=== PATIENT | male | born 1980 | race Caucasian/White ===

== ENCOUNTER 2017-11-20 07:35 | Emergency (ER) | payer MEDICAID ==
[2017-11-20 07:35] VITALS: BMI 26.4
[2017-11-20 07:53] VITALS: RESP 18
--- NOTE | 2017-11-20 08:12 | C.PDOC ---
History Of Present Illness Patient reports 1 day history of back pain radiating into abdomen. Patient reports history of kidney stones and chronic pain. denies fever, chills or hematuria. Time Seen by Provider: 11/20/17 08:00 Chief Complaint (Nursing): Back Pain History Per: Patient Onset/Duration Of Symptoms: Days Current Symptoms Are (Timing): Still Present Quality Of Discomfort: Dull Severity: Mild Previous Symptoms: Back Pain Exacerbating Factor(s): Nothing Recent travel outside of the [place]: No Past Medical History Reviewed: Historical Data, Nursing Documentation, Vital Signs Vital Signs: Last Vital Signs Temp 98.8 F 11/20/17 11:45 Pulse 70 11/20/17 11:45 Resp 18 11/20/17 11:45 BP 134/74 11/20/17 11:45 Pulse Ox 98 11/20/17 12:11 - Medical History PMH: Back Problems ( PER PATIENT), Kidney Stones, Chronic Kidney Disease Surgical History: No Surg Hx Family History: States: No Known Family Hx - Social History Hx Alcohol Use: No Hx Substance Use: Yes (MEDICAL PER PATIENT) Review Of Systems Constitutional: Negative for: Fever Cardiovascular: Negative for: Chest Pain Respiratory: Negative for: Shortness of Breath Gastrointestinal: Positive for: Abdominal Pain Musculoskeletal: Positive for: Back Pain Physical Exam - Physical Exam Appears: Non-toxic Skin: Normal Color Eye(s): bilateral: Normal Inspection, PERRL Oral Mucosa: Moist Chest: Tenderness Respiratory: Normal Breath Sounds Gastrointestinal/Abdominal: Tenderness (mild right side) Back: CVA Tenderness (right) Extremity: Normal ROM Neurological/Psych: Oriented x3 Gait: Steady ED Course And Treatment - Laboratory Results Result Diagrams: 11/20/17 08:19 11/20/17 08:19 Lab Interpretation: Normal O2 Sat by Pulse Oximetry: 98 - CT Scan/US No standard instances Other Rad Studies (CT/US): Read By Radiologist, Radiology Report Reviewed CT/US Interpretation: FINDINGS: LOWER THORAX: Unremarkable. LIVER: Unremarkable. No gross lesion or ductal dilatation. GALLBLADDER AND BILE DUCTS : Unremarkable. PANCREAS: Unremarkable. No gross lesion or ductal dilatation. SPLEEN: Unremarkable. ADRENALS: Unremarkable. No mass. KIDNEYS AND URETERS: Right kidney: Mild to moderate right hydroureteronephrosis with obstructing 5 millimeter calculus at the right ureterovesicular junction. Perinephric fat stranding. Additional 5 and 7 millimeter calculi noted in the upper and mid poles of the right kidney. VASCULATURE: Unremarkable. No aortic aneurysm. BOWEL: Unremarkable. No obstruction. No gross mural thickening. Under distended transverse and descending colon. APPENDIX: Unremarkable. Normal appendix. PERITONEUM: Unremarkable. No free fluid. No free air. LYMPH NODES: Unremarkable. No enlarged lymph nodes. BLADDER: Unremarkable. REPRODUCTIVE: Unremarkable. BONES: Multilevel Schmorl's nodes in the thoracic and lumbar spine with mild loss height of the superior endplate the T12 vertebral body. OTHER FINDINGS: Calcification within the aorta. Few shotty para-aortic and mesenteric nodes. IMPRESSION: Mild to moderate right hydroureteronephrosis with obstructing 5 millimeter calculus at the right ureterovesicular junction. Perinephric fat stranding. Additional 5 and 7 millimeter calculi noted in the upper and mid poles of the right kidney. Progress Note: Patient treated with IVF NSS and toradol IV. Patient treated with zofran for vomiting. On re-evaluation abdomen soft, sleeping , in no distress Reassessment Condition: Improved Disposition Counseled Patient/Family Regarding: Studies Performed, Diagnosis, Need For Followup, Rx Given - Disposition Referrals: Devon Landaverde MD [Staff Provider] - Disposition: HOME/ ROUTINE Disposition Time: 12:15 Condition: STABLE Prescriptions: Naproxen [Naprosyn] 1 tab PO BID PRN #25 tab PRN Reason: Pain Instructions: Renal Colic Forms: [facility] (Bur[place]ian) - POA Present On Arrival: None - Clinical Impression Clinical Impression: Renal colic
[2017-11-20] MEDS ORDERED: Sodium Chloride 0.9% 1,000 ML IV ONE (08:13)
[2017-11-20] MEDS ORDERED: Sodium Chloride 0.9% 1,000 ML ONE (08:16)
[2017-11-20 08:33] LABS: BASO # 0.1 K/uL (0.0-0.2); BASO % 1.3 % (0.0-2.0); EOS # 0.1 K/uL (0.0-0.7); EOS % 0.8 % (0.0-4.0); HEMOGLOBIN 15.2 g/dL (12.0-18.0); LYMPH # 1.6 K/uL (1.0-4.3); LYMPH % 16.5 % (20.0-40.0); MEAN CELL VOLUME 87.6 fL (80.0-94.0); MEAN CORPUSCULAR HEMOGLOBIN 29.2 pg (27.0-31.0); MEAN CORPUSCULAR HGB CONC 33.3 g/dL (33.0-37.0); MEAN PLATELET VOLUME 9.9 fL (7.2-11.7); MONO # 0.5 K/uL (0.0-0.8); MONO % 4.8 % (0.0-10.0); NEUT # 7.6 K/uL (1.8-7.0); NEUT % 76.6 % (50.0-75.0); NRBC % 0.1 % (0.0-2.0); RBC 5.22 Mil/uL (4.40-5.90); WHITE BLOOD COUNT 9.9 K/uL (4.8-10.8)
[2017-11-20 08:48] LABS: ALB/GLOB RATIO 1.6 (1.0-2.1); ALBUMIN 4.7 g/dL (3.5-5.0); ALT/SGPT 27 U/L (21-72); AST/SGOT 33 U/L (17-59); BLOOD UREA NITROGEN 13 mg/dL (9-20); CALCIUM 9.7 mg/dl (8.6-10.4); GFR AFRICAN-AMERICAN > 60; GFR NON-AFRICAN AMERICAN > 60; LIPASE 133 U/L (23-300)
--- NOTE | 2017-11-20 10:02 | CT ---
PROCEDURE: CT Abdomen and Pelvis without intravenous contrast HISTORY: Right flank pain COMPARISON: None. TECHNIQUE: Multiple contiguous axial images were performed through the abdomen and pelvis without the use of intravenous contrast. Radiation dose: Total exam DLP = 471 mGy-cm. This CT exam was performed using one or more of the following dose reduction techniques: Automated exposure control, adjustment of the mA and/or kV according to patient size, and/or use of iterative reconstruction technique. FINDINGS: LOWER THORAX: Unremarkable. LIVER: Unremarkable. No gross lesion or ductal dilatation. GALLBLADDER AND BILE DUCTS: Unremarkable. PANCREAS: Unremarkable. No gross lesion or ductal dilatation. SPLEEN: Unremarkable. ADRENALS: Unremarkable. No mass. KIDNEYS AND URETERS: Right kidney: Mild to moderate right hydroureteronephrosis with obstructing 5 millimeter calculus at the right ureterovesicular junction. Perinephric fat stranding. Additional 5 and 7 millimeter calculi noted in the upper and mid poles of the right kidney. VASCULATURE: Unremarkable. No aortic aneurysm. BOWEL: Unremarkable. No obstruction. No gross mural thickening. Under distended transverse and descending colon. APPENDIX: Unremarkable. Normal appendix. PERITONEUM: Unremarkable. No free fluid. No free air. LYMPH NODES: Unremarkable. No enlarged lymph nodes. BLADDER: Unremarkable. REPRODUCTIVE: Unremarkable. BONES: Multilevel Schmorl's nodes in the thoracic and lumbar spine with mild loss height of the superior endplate the T12 vertebral body. OTHER FINDINGS: Calcification within the aorta. Few shotty para-aortic and mesenteric nodes. IMPRESSION: Mild to moderate right hydroureteronephrosis with obstructing 5 millimeter calculus at the right ureterovesicular junction. Perinephric fat stranding. Additional 5 and 7 millimeter calculi noted in the upper and mid poles of the right kidney. Additional findings as above.
[2017-11-20 11:46] VITALS: BP 134/74; PULSE 70; TEMP 98.8
[2017-11-20 11:59] LABS: SQUAMOUS EPITHIAL < 1 /hpf (0-5); URINE BILIRUBIN NEGATIVE (NEGATIVE); URINE BLOOD 1+ (NEGATIVE); URINE CLARITY Clear (Clear); URINE COLOR Yellow (YELLOW); URINE GLUCOSE (UA) NORMAL (Normal); URINE LEUKOCYTE ESTERASE NEG Leu/uL (Negative); URINE PROTEIN NEGATIVE (NEGATIVE); URINE UROBILINOGEN NORMAL mg/dL (0.2-1.0)
[2017-11-20 12:11] VITALS: O2SAT 98
== END 2017-11-20 12:19 | disposition home or self-care (01) ==
LOC: C.ER 07:35
DX: N23 Unspecified renal colic (principal); N18.9 Chronic kidney disease, unspecified
CPT/HCPCS: 74176; 80053; 81001; 83690; 85025; 96361; 96374; 96375; 99285; J1885; J2405; J7030

== ENCOUNTER 2018-04-20 16:33 | Emergency (ER) | payer MEDICAID ==
[2018-04-20 16:33] VITALS: BMI 26.4
[2018-04-20 16:52] VITALS: BP 127/82; TEMP 98.4
[2018-04-20] MEDS ORDERED: Sodium Chloride 0.9% 1,000 ML IV STA (17:34)
[2018-04-20] MEDS ORDERED: Lidocaine 133 MG in Sodium Chloride 0.9% 100 ML IV STA (17:34)
--- NOTE | 2018-04-20 17:34 | C.PDOC ---
History Of Present Illness 37 y/o male, with history of kidney stones, presents to ED c/o right flank pain going on since yesterday. Pain is intermittent, localized, and similar to previous episode of kidney stone. He reports associated nausea. Otherwise, jeannine es hematuria, fever, or any other associated symptoms at this time. <Leonie Gonsalez - Last Filed: 04/20/18 18:58> History Per: Patient History/Exam Limitations: no limitations Onset/Duration Of Symptoms: Days, Intermittent Episodes Current Symptoms Are (Timing): Still Present Quality Of Discomfort: "Pain" Associated Symptoms: Nausea. denies: Vomiting, Diarrhea, Loss Of Appetite, Chest Pain, Constipation Alleviating Factors: None Recent travel outside of the [place]: No Additional History Per: Patient <Leonie Gonsalez - Last Filed: 04/20/18 18:58> <Lora Waters - Last Filed: 04/20/18 20:26> Time Seen by Provider: 04/20/18 17:29 Chief Complaint (Nursing): Back Pain Past Medical History Reviewed: Historical Data, Nursing Documentation, Vital Signs Vital Signs: Last Vital Signs Temp 98.4 F 04/20/18 16:45 Pulse 59 L 04/20/18 16:45 Resp 20 04/20/18 16:45 BP 127/82 04/20/18 16:45 Pulse Ox 99 04/20/18 16:45 - Medical History PMH: Back Problems ( PER PATIENT), Kidney Stones, Chronic Kidney Disease Family History: States: Unknown Family Hx - Social History Hx Alcohol Use: Yes Hx Substance Use: Yes (MEDICAL PER PATIENT) - Immunization History Hx Tetanus Toxoid Vaccination: No Hx Influenza Vaccination: No Hx Pneumococcal Vaccination: No <Leonie Gonsalez - Last Filed: 04/20/18 18:58> Vital Signs: Last Vital Signs Temp 98.4 F 04/20/18 16:45 Pulse 59 L 04/20/18 16:45 Resp 20 04/20/18 16:45 BP 127/82 04/20/18 16:45 Pulse Ox 99 04/20/18 18:58 <Lroa Waters - Last Filed: 04/20/18 20:26> Review Of Systems Except As Marked, All Systems Reviewed And Found Negative. Constitutional: Negative for: Fever, Chills Cardiovascular: Negative for: Chest Pain Respiratory: Negative for: Shortness of Breath Gastrointestinal: Positive for: Nausea. Negative for: Vomiting, Abdominal Pain, Diarrhea Genitourinary: Negative for: Dysuria, Frequency, Incontinence, Hematuria, Penile Discharge Musculoskeletal: Positive for: Back Pain Neurological: Negative for: Weakness, Numbness <WallaceLeonie - Last Filed: 04/20/18 18:58> Physical Exam - Physical Exam Appears: Non-toxic, Other (mild distress) Skin: Normal Color, Warm, Dry Head: Atraumatic, Normacephalic Eye(s): bilateral: Normal Inspection Oral Mucosa: Moist Neck: Normal ROM, Supple Chest: Symmetrical Cardiovascular: Rhythm Regular, No Murmur Respiratory: Normal Breath Sounds, No Rales, No Rhonchi, No Wheezing Gastrointestinal/Abdominal: Soft, No Tenderness, No Guarding, No Rebound Back: Normal Inspection, No CVA Tenderness, No Vertebral Tenderness, No Decreased ROM, No Paraspinal Tenderness, Other (FROM of back) Extremity: Normal ROM, No Deformity Neurological/Psych: Oriented x3, Normal Speech <Leonie Gonsalez - Last Filed: 04/20/18 18:58> ED Course And Treatment - Laboratory Results Result Diagrams: 04/20/18 18:02 04/20/18 18:02 O2 Sat by Pulse Oximetry: 99 (RA) Pulse Ox Interpretation: Normal <Leonie Gonsalez - Last Filed: 04/20/18 18:58> - Laboratory Results Result Diagrams: 04/20/18 18:02 04/20/18 18:02 Pulse Ox Interpretation: Normal - CT Scan/US CT abd/pelvis Other Rad Studies (CT/US): Read By Radiologist, Radiology Report Reviewed CT/US Interpretation: Name:KELL NAVA Exam Date:Apr 20, 2018 6:30:50 PM EST. Modality Type:CT\\OT. Description:CT - ABDOMEN AND PELVIS WITH CORONAL AND SAGITTAL MPRS. Gender:M Laterality:Not applicable. :76 Referring Physician:Leonie Gonsalez MD. EXAM: CT Abdomen and Pelvis Without IV contrast. CLINICAL HISTORY: Right flank pain. TECHNIQUE: Axial computed tomography images of the abdomen and pelvis without intravenous contrast. CONTRAST: No IV contrast. COMPARISON: CT\\SD\\SR - ABD PELVIS W/O PO OR IV CONT - 11/20/2017 09:16 AM EDT. FINDINGS: LUNG BASES: The lung bases appear clear. No pleural effusions are seen. LIVER: Unremarkable. GALLBLADDER AND BILE DUCTS: The gallbladder appears within normal limits. No radioopaque gallstones are seen. No biliary ductal dilatation is evident. PANCREAS: Unremarkable. SPLEEN: Unremarkable. ADRENAL GLANDS: Unremarkable. KIDNEYS, URETERS, AND BLADDER: 5 mm non-obstructing calculus is present in the superior pole of the right kidney. 7 mm non-obstructing calculus is present in the mild pole of the right kidney. STOMACH AND BOWEL: Unremarkable appearance of the stomach and bowel. No evidence of bowel obstruction. No evidence suggesting enteritis or colitis. APPENDIX: No evidence of acute appendicitis on CT examination. PERITONEUM: No free fluid. No free air. LYMPH NODES: No lymphadenopathy is evident. REPRODUCTIVE: Unremarkable as visualized. VASCULATURE: No evidence of abdominal aortic aneurysm. BONES: No aggressive appearing osseous lesion. No acute osseous pathology evident. MISCELLANEOUS: Small fat-containing umbilical hernia is noted. IMPRESSION: 1. Stable 5 mm non-obstructing calculus is present in the superior pole of the right kidney. 2. Stable 7 mm non-obstructing calculus is p resent in the mild pole of the right kidney. 3. Resolution of previously noted obstructing calculus at the right UVJ. 3. No acute pathology. Reevaluation Time: 20:16 Reassessment Condition: Improved <JtKathyrhona - Last Filed: 04/20/18 20:26> Progress - Data Reviewed Data Reviewed: Lab, Diagnostic imaging, Old records <WallaceLeonie Filed: 04/20/18 18:58> Medical Decision Making Medical Decision Making: Plan: * Blood work * Urinalysis * Abd & Pelvis CT * Tylenol * Toradol * Flomax * IV fluids <WallaceLeonie Last Filed: 04/20/18 18:58> Disposition - Disposition Disposition Time: 19:00 <WallaceLeonie Bledsoe Filed: 04/20/18 18:58> Counseled Patient/Family Regarding: Studies Performed, Diagnosis, Need For Followup, Rx Given <Lora Waters - Last Filed: 04/20/18 20:26> - Disposition Referrals: Yoel Gutierrez MD [Staff Provider] - Condition: FAIR Additional Instructions: Please return if symptoms recur Prescriptions: Ondansetron ODT [Zofran ODT] 1 odt PO BID PRN #6 odt PRN Reason: Nausea/Vomiting traMADol [Ultram] 50 mg PO TID PRN #15 tab PRN Reason: Pain, Severe (8-10) Instructions: Renal Colic (DC) Forms: [employer] (Setsw[place]) - Clinical Impression Clinical Impression: Renal colic - Scribe Statement The provider has reviewed the documentation as recorded by the Scribe KP All medical record entries made by the Scribe were at my direction and personally dictated by me. I have reviewed the chart and agree that the record accurately reflects my personal performance of the history, physical exam, medical decision making, and the department course for this patient. I have also personally directed, reviewed, and agree with the discharge instructions and disposition. <Leonie Gonsalez - Last Filed: 04/20/18 18:58> Physician Patient Turnover Patient Signed Over To: Lora Waters Handoff Comments: SUKHJINDER CT, DISPO <Leonie Gonsalez - Last Filed: 04/20/18 18:58>
[2018-04-20] MEDS ORDERED: Sodium Chloride 0.9% 1,000 ML ONE (17:51)
[2018-04-20 18:14] LABS: BASO # 0.1 K/uL (0.0-0.2); BASO % 1.3 % (0.0-2.0); EOS # 0.1 K/uL (0.0-0.7); EOS % 2.4 % (0.0-4.0); LYMPH # 2.3 K/uL (1.0-4.3); LYMPH % 52.3 % (20.0-40.0); MEAN CELL VOLUME 85.4 fL (80.0-94.0); MEAN CORPUSCULAR HEMOGLOBIN 28.1 pg (27.0-31.0); MEAN CORPUSCULAR HGB CONC 32.9 g/dL (33.0-37.0); MEAN PLATELET VOLUME 9.8 fL (7.2-11.7); MONO # 0.3 K/uL (0.0-0.8); MONO % 7.3 % (0.0-10.0); NEUT # 1.6 K/uL (1.8-7.0); NEUT % 36.7 % (50.0-75.0); NRBC % 0.1 % (0.0-2.0); RBC 4.97 Mil/uL (4.40-5.90); RED CELL DISTRIBUTION WIDTH 13.8 % (11.5-14.5); WHITE BLOOD COUNT 4.5 K/uL (4.8-10.8)
[2018-04-20 18:29] LABS: ALB/GLOB RATIO 1.5 (1.0-2.1); ALBUMIN 4.4 g/dL (3.5-5.0); ALT/SGPT 23 U/L (21-72); AST/SGOT 27 U/L (17-59); BLOOD UREA NITROGEN 16 mg/dL (9-20); CALCIUM 9.6 mg/dl (8.6-10.4); GFR NON-AFRICAN AMERICAN > 60; LIPASE 156 U/L (23-300)
[2018-04-20 19:39] LABS: URINE BACTERIA RARE (<OCC); URINE BILIRUBIN NEGATIVE (NEGATIVE); URINE BLOOD 1+ (NEGATIVE); URINE CLARITY Clear (Clear); URINE COLOR Yellow (YELLOW); URINE GLUCOSE (UA) NORMAL (Normal); URINE LEUKOCYTE ESTERASE NEG Leu/uL (Negative); URINE PROTEIN NEGATIVE (NEGATIVE); URINE UROBILINOGEN NORMAL mg/dL (0.2-1.0)
[2018-04-20 20:36] VITALS: PULSE 60; RESP 18; O2SAT 100
--- NOTE | 2018-04-21 10:22 | CT ---
Date of service: 04/20/2018 PROCEDURE: CT Abdomen and Pelvis.. HISTORY: RIGHT FLANK PAIN COMPARISON: Comparison made with CT scan abdomen pelvis 11/20/2018. TECHNIQUE: Contiguous axial images of the abdomen and pelvis without oral or intravenous contrast given. Coronal and Sagittal reformats generated. Radiation dose: Total exam DLP = 909.55 mGy-cm. This CT exam was performed using one or more of the following dose reduction techniques: Automated exposure control, adjustment of the mA and/or kV according to patient size, and/or use of iterative reconstruction technique. FINDINGS: LOWER THORAX: Lung bases clear. No infiltrate effusion or basilar pneumothorax. Heart size borderline/mildly enlarged.. Tiny hiatal hernia. LIVER: Liver is mildly enlarged measuring nearly 20 cm in CC dimension. No obvious hepatic mass collection or calcification. GALLBLADDER AND BILE DUCTS: Appears contracted likely due to nonfasting state however clinical correlation with history recommended. No obvious intraluminal gallbladder calculi are identified. PANCREAS: Unremarkable. No mass, collection or obvious calcification. No significant ductal dilatation. SPLEEN: Unremarkable. No splenomegaly. ADRENALS: The no adrenal lesions. KIDNEYS AND URETERS: Kidneys demonstrate relatively symmetric nephrograms. There are several nonobstructing calculi seen in right kidney the largest elliptical shaped calcification at midpole level measuring 8.9 mm. 2nd upper calculus measures approximate 4.8 mm. Few punctate calcifications also seen upper midpole levels. Previously noted obstructing right-sided UVJ calculus no longer visible. No left-sided calculi. No evidence of hydronephrosis.. BLADDER: Urinary bladder is incompletely distended which may in part account for slight appearance. Possibility of a cystitis not completely excluded though less likely in a male patient. Correlation with urinalysis recommended REPRODUCTIVE: Prostate gland measures just over 4.8 cm transverse dimension. APPENDIX: Normal appendix. BOWEL: Evaluation of the bowel is somewhat limited due to the lack of oral contrast material. Stomach is partially distended with food debris liquid and air. Visualized loops of small bowel exhibit normal contour and caliber. No evidence of acute mechanical small bowel obstruction. Stool and air seen throughout the large bowel. No definitive mural wall thickening. The PERITONEUM: Unremarkable. No fluid collection. No free air. Small fat containing umbilical hernia. LYMPH NODES: Unremarkable. No enlarged lymph nodes. VASCULATURE: Unremarkable. No aortic aneurysm. Minimal aortic atherosclerotic calcification or mural plaque present. BONES: Minimal multilevel degenerative spondylosis of the lower thoracic and lumbar spine. No acute compression fractures no retropulsed fragments. OTHER FINDINGS: None. IMPRESSION: There are several nonobstructing calculi right kidney the largest measuring 8.9 and the 2nd largest measuring 4.8 mm with few additional punctate calcifications. No evidence of hydronephrosis. Previously noted right UVJ calculus no longer visible.
== END 2018-04-20 20:36 | disposition home or self-care (01) ==
LOC: C.ER 16:33
DX: N23 Unspecified renal colic (principal)
CPT/HCPCS: 74176; 80053; 81001; 83690; 85025; 96361; 96374; 99284; J1885; J2001; J7030

== ENCOUNTER 2018-10-11 00:37 | Emergency (ER) | payer MEDICAID ==
[2018-10-11 00:38] VITALS: BMI 26.4
[2018-10-11 00:53] VITALS: O2SAT 99
[2018-10-11] MEDS ORDERED: Sodium Chloride 0.9% 1,000 ML IV ONE ×2 (01:02)
[2018-10-11] MEDS ORDERED: Sodium Chloride 0.9% 1,000 ML ONE (01:09)
[2018-10-11 01:12] LABS: BASO % 0.2 % (0.0-2.0); EOS % 0.2 % (0.0-4.0); HEMOGLOBIN 15.2 g/dL (12.0-18.0); LYMPH # 0.5 K/uL (1.0-4.3); LYMPH % 5.4 % (20.0-40.0); MEAN CELL VOLUME 86.3 fL (80.0-94.0); MEAN CORPUSCULAR HGB CONC 33.6 g/dL (33.0-37.0); MEAN PLATELET VOLUME 9.6 fL (7.2-11.7); MONO # 0.3 K/uL (0.0-0.8); MONO % 3.6 % (0.0-10.0); NEUT % 90.6 % (50.0-75.0); NRBC % 0.1 % (0.0-2.0); PLATELET COUNT 212 K/uL (130-400); RBC 5.22 Mil/uL (4.40-5.90); RED CELL DISTRIBUTION WIDTH 14.7 % (11.5-14.5); WHITE BLOOD COUNT 8.9 K/uL (4.8-10.8)
--- NOTE | 2018-10-11 01:14 | C.PDOC ---
History Of Present Illness 37 year old male presents with abdominal pain that began today associated with vomiting and watery nonbloody diarrhea. Denies dysuria or hematuria. Chief Complaint (Nursing): Abdominal Pain History Per: Patient History/Exam Limitations: no limitations Onset/Duration Of Symptoms: Hrs Current Symptoms Are (Timing): Still Present Location Of Pain/Discomfort: Diffuse Quality Of Discomfort: Unable To Describe Associated Symptoms: Vomiting, Diarrhea. denies: Urinary Symptoms Exacerbating Factors: None Alleviating Factors: None Recent travel outside of the [place]: No Past Medical History Reviewed: Historical Data, Nursing Documentation, Vital Signs Vital Signs: Last Vital Signs Temp 97.4 F L 10/11/18 00:50 Pulse 64 10/11/18 00:50 Resp 16 10/11/18 00:50 BP 121/74 10/11/18 00:50 Pulse Ox 99 10/11/18 00:50 Primary Care Provider: Calvin Robertson - Medical History PMH: Back Problems ( PER PATIENT), Kidney Stones, Chronic Kidney Disease Family History: States: Unknown Family Hx - Social History Hx Alcohol Use: Yes Hx Substance Use: Yes - Immunization History Hx Tetanus Toxoid Vaccination: No Hx Influenza Vaccination: No Hx Pneumococcal Vaccination: No Review Of Systems Constitutional: Negative for: Fever, Chills Cardiovascular: Negative for: Chest Pain, Palpitations Respiratory: Negative for: Cough, Shortness of Breath Gastrointestinal: Positive for: Vomiting, Abdominal Pain, Diarrhea. Negative for: Nausea Genitourinary: Negative for: Dysuria, Hematuria Neurological: Negative for: Weakness, Numbness Physical Exam - Physical Exam Appears: Non-toxic, Other (Mild distress) Skin: Normal Color, Warm Head: Atraumatic, Normacephalic Eye(s): bilateral: Normal Inspection Oral Mucosa: Moist Neck: Normal, Supple Chest: Symmetrical, No Tenderness Cardiovascular: Rhythm Regular Respiratory: Normal Breath Sounds, No Rales, No Rhonchi, No Wheezing Gastrointestinal/Abdominal: Bowel Sounds (Active), Soft, No Tenderness, No Guarding, No Rebound Neurological/Psych: Oriented x3, Normal Speech ED Course And Treatment - Laboratory Results Result Diagrams: 10/11/18 01:08 10/11/18 01:08 O2 Sat by Pulse Oximetry: 99 (room air) Pulse Ox Interpretation: Normal Progress Note: Blood work and urinalysis ordered. IV fluids, bentyl, and IV fluids administered. Disposition Counseled Patient/Family Regarding: Diagnosis - Disposition Referrals: [facility] [Outside] Disposition: HOME/ ROUTINE Disposition Time: 03:15 Condition: STABLE Prescriptions: Dicyclomine [Bentyl] 10 mg PO TID #14 cap Instructions: Diarrhea in Adolescents and Adults, Acute Abdomen (Belly Pain), Adult (DC), Viral Gastroenteritis, Adult (DC) Forms: [employer] (North Korean) - POA Present On Arrival: None - Clinical Impression Clinical Impression: Abdominal pain, Gastroenteritis - Scribe Statement The provider has reviewed the documentation as recorded by the Scribe Adrián Coates All medical record entries made by the Kazibe were at my direction and personally dictated by me. I have reviewed the chart and agree that the record accurately reflects my personal performance of the history, physical exam, medical decision making, and the department course for this patient. I have also personally directed, reviewed, and agree with the discharge instructions and disposition.
[2018-10-11 01:22] LABS: ALB/GLOB RATIO 1.7 (1.0-2.1); ALBUMIN 4.9 g/dL (3.5-5.0); ALT/SGPT 29 U/L (21-72); AST/SGOT 33 U/L (17-59); BLOOD UREA NITROGEN 17 mg/dL (9-20); CALCIUM 9.6 mg/dl (8.6-10.4); GFR NON-AFRICAN AMERICAN > 60; LIPASE 104 U/L (23-300)
[2018-10-11 02:05] LABS: LYMPHOCYTE 4 % (20-40); MONOCYTE 2 % (0-10); NEUTROPHIL 94 % (50-75); PLATELET ESTIMATE NORMAL (NORMAL); TOTAL CELLS COUNTED 100
[2018-10-11 03:16] VITALS: BP 121/70; PULSE 66; RESP 18; TEMP 98.3
== END 2018-10-11 03:16 | disposition home or self-care (01) ==
LOC: C.ER 00:37
DX: K52.9 Noninfective gastroenteritis and colitis, unspecified (principal); R10.9 Unspecified abdominal pain
CPT/HCPCS: 80053; 83690; 85025; 96372; 96374; 99283; J0500; J1885; J7030